=== PATIENT | female | born 1995 | race Caucasian/White ===

== ENCOUNTER 2017-12-15 16:39 | Inpatient (IN) | payer MEDICAID ==
[~2017-12-15] VITALS: Ht 170.2 cm; Wt 75.0 kg
[~2017-12-15 16:39] MED LIST: IBUP-1573 PO; NO HOME MEDS
[2017-12-15] MEDS ORDERED: levoFLOXACIN-Levaquin 500mg/D5 100 ML IV ONE (16:45)
[2017-12-15] MEDS ORDERED: normal saline 1000ML IV soln IVB ONE (16:45)
[2017-12-15] MEDS ORDERED: ondansetron/PF 4mg/2ml inj IV ONE (16:45)
[2017-12-15] MEDS ORDERED: morphine 4 MG/ML inj SYRINge IV ONE (16:45)
[2017-12-15 17:17] LABS: BASOPHILS % (AUTO) 0.2 % (0-1); EOSINOPHILS % (AUTO) 0 % (0-6); HEMATOCRIT 40.7 % (35.0-45.0); LYMPHOCYTES # (AUTO) 2.7 X10'3 (1.1-4.8); LYMPHOCYTES % (AUTO) 16.8 % (21-51); MEAN CORPUSCULAR HEMOGLOBIN 31.3 PG (27.0-31.0); MEAN CORPUSCULAR HGB CONC 34.5 % (33.0-36.5); MEAN CORPUSCULAR VOLUME 90.7 FL (78-98); MEAN PLATELET VOLUME 6.6 FL (7.4-10.4); MONOCYTES # (AUTO) 2.5 X10'3 (0-0.9); MONOCYTES % (AUTO) 15.9 % (2-12); NEUTROPHILS # (AUTO) 10.6 X10'3 (1.8-7.7); NEUTROPHILS % (AUTO) 67.1 % (42-75); PLATELET COUNT 238 X10'3 (140-440); RED BLOOD COUNT 4.48 X10'6 (4.20-5.60); RED CELL DISTRIBUTION WIDTH 13.4 % (11.5-14.5); WHITE BLOOD COUNT 15.8 X10'3 (4.5-11.0)
[2017-12-15 17:31] LABS: ALANINE AMINOTRANSFERASE 112 U/L (12-78); ALBUMIN 3.4 G/DL (3.4-5.0); ALBUMIN/GLOBULIN RATIO 0.7 (1.1-1.5); ALKALINE PHOSPHATASE 184 IU/L (46-116); ANION GAP 14 (8-16); ASPARTATE AMINO TRANSFERASE 60 U/L (10-37); BILIRUBIN,TOTAL 2.1 MG/DL (0.1-1.0); BLOOD UREA NITROGEN 5 MG/DL (7-18); BUN/CREATININE RATIO 5.7 (6.6-38.0); CALCIUM 8.9 MG/DL (8.5-10.1); CHLORIDE 96 MMOL/L (99-107); CREATININE 0.87 MG/DL (0.40-0.90); GLUCOSE 97 MG/DL (70-104); LIPASE 58 U/L (73-393); POTASSIUM 3.3 MMOL/L (3.5-5.1); SODIUM 133 MMOL/L (135-145); TOTAL CARBON DIOXIDE 23.3 MMOL/L (24-32); TOTAL PROTEIN 8.1 G/DL (6.4-8.2); TROPONIN I < 0.04 NG/ML (0.0-0.05); eGFR 81 ML/MIN
[2017-12-15] MEDS ORDERED: normal saline 1000ml 1,000 ML IV ONE (18:00)
[2017-12-15 18:11] LABS: GLUCOSE, URINE Negative (Neg); KETONES,URINE Trace mg/dl (Neg); LEUKOCYTE ESTERASE ,URINE Large (Neg); NITRITES, URINE Positive (Neg); OCCULT BLOOD,URINE Moderate (Neg); PROTEIN,URINE 100 mg/dl (Neg); UROBILINOGEN,URINE >=8.0 E.U/dL (0.2-1.0)
[2017-12-15 18:12] LABS: URINE HCG NEGATIVE (NEG)
[2017-12-15 18:14] LABS: UA COLLECTION TYPE CLN CATCH MIDSTREAM
[2017-12-15 18:14] LABS: TOTAL CELLS COUNTED 100
[2017-12-15 18:15] LABS: CLARITY,URINE CLOUDY (Clear); COLOR,URINE AMBER (Yellow); PH,URINE 6.5 (4.8-8.0)
[2017-12-15 18:15] LABS: PLATELET ESTIMATE NORMAL
[2017-12-15 18:28] LABS: WBC,URINE 50-100 /HPF (0-4)
[2017-12-15 18:29] LABS: BACTERIA,URINE 3+ /HPF (Neg); MUCUS STRANDS NONE SEEN /LPF (Neg); SQUAMOUS EPITHELIAL CELL,UR FEW /LPF (FEW)
[2017-12-15] MEDS ORDERED: potassium Cl 20 mEq SR tablet PO PRN (20:50)
[2017-12-15] MEDS ORDERED: mag hydrox/Alum hydrox/simeth 30ml oral suspension PO PRN (20:50)
[2017-12-15] MEDS ORDERED: magnesium 4gm in 100ml NS 100 ML IV PRN (20:50)
[2017-12-15] MEDS ORDERED: acetaminophen 325mg tablet PO PRN (20:50)
[2017-12-15] MEDS ORDERED: magnesium Cl slow-release 64mg tablet PO PRN (20:50)
[2017-12-15] MEDS ORDERED: potassium Cl 40MEQ/NS 500ml 500 ML IV PRN ×2 (20:50)
[2017-12-15] MEDS ORDERED: magnesium 2GM in 50ml NS 50 ML IV PRN (20:50)
[2017-12-15] MEDS ORDERED: magnesium hydroxide 30ml (MOM) UD suspension PO PRN (20:50)
[2017-12-15] MEDS ORDERED: temazepam 15mg capsule PO PRN (21:00)
[2017-12-15] MEDS: potassium Cl 20mEq in NS 1,000 ML IV SCH (21:00)
[2017-12-15] MEDS: ondansetron/PF 4mg/2ml inj IV PRN (22:38)
[2017-12-15] MEDS: HYDROmorphone inj. 0.5 MG/0.5 ML DISP.SYRIN IV PRN (22:39)
[2017-12-16] MEDS: piperacillin/tazo 4.5gm/100ml 100 ML IV SCH ×4 (00:24→23:34)
[2017-12-16] MEDS: potassium Cl 20mEq in NS 1,000 ML IV SCH ×2 (03:33→10:07)
[2017-12-16] MEDS: ondansetron/PF 4mg/2ml inj IV PRN (04:32)
[2017-12-16] MEDS: HYDROmorphone inj. 0.5 MG/0.5 ML DISP.SYRIN IV PRN ×5 (04:32→23:34)
[2017-12-16] MEDS: heparin, porcine 5000 units/ml vial SQ SCH ×2 (07:41→19:47)
[2017-12-16 07:54] LABS: BASOPHILS % (AUTO) 0.1 % (0-1); EOSINOPHILS # (AUTO) 0.1 X10'3 (0-0.9); EOSINOPHILS % (AUTO) 0.8 % (0-6); HEMATOCRIT 29.8 % (35.0-45.0); HEMOGLOBIN 10.3 g/dl (12.0-16.0); LYMPHOCYTES # (AUTO) 2.2 X10'3 (1.1-4.8); LYMPHOCYTES % (AUTO) 16.9 % (21-51); MEAN CORPUSCULAR HEMOGLOBIN 31.4 PG (27.0-31.0); MEAN CORPUSCULAR HGB CONC 34.6 % (33.0-36.5); MEAN CORPUSCULAR VOLUME 90.7 FL (78-98); MEAN PLATELET VOLUME 6.1 FL (7.4-10.4); MONOCYTES # (AUTO) 2.5 X10'3 (0-0.9); MONOCYTES % (AUTO) 19.8 % (2-12); NEUTROPHILS % (AUTO) 62.4 % (42-75); PLATELET COUNT 194 X10'3 (140-440); RED BLOOD COUNT 3.28 X10'6 (4.20-5.60); RED CELL DISTRIBUTION WIDTH 13.6 % (11.5-14.5); WHITE BLOOD COUNT 12.8 X10'3 (4.5-11.0)
[2017-12-16 08:02] LABS: ALBUMIN 2.3 G/DL (3.4-5.0); ANION GAP 8 (8-16); BLOOD UREA NITROGEN 4 MG/DL (7-18); BUN/CREATININE RATIO 6.3 (6.6-38.0); CHLORIDE 106 MMOL/L (99-107); CREATININE 0.63 MG/DL (0.40-0.90); GLUCOSE 91 MG/DL (70-104); MAGNESIUM 1.8 MG/DL (1.5-2.4); POTASSIUM 4.1 MMOL/L (3.5-5.1); SODIUM 140 MMOL/L (135-145); TOTAL CARBON DIOXIDE 26.5 MMOL/L (24-32); eGFR > 90 ML/MIN
[2017-12-16] MEDS: K and/or MAG REPLACEMENT MC SCH (08:05)
[2017-12-16] MEDS: levoFLOXACIN-Levaquin 500mg/D5 100 ML IV SCH (09:06)
[2017-12-16] MEDS: lactobacillus rhamnosus 10,000 MMU CELLS/CAPSULE PO SCH (16:47)
[2017-12-16] MEDS: nicotine 21mg patch - 24 hr TD SCH (17:29)
[2017-12-16 20:26] VITALS: BP 102/60
[2017-12-16 23:52] VITALS: BP 102/56
[2017-12-17 03:44] LABS: HEMATOCRIT 33.6 % (35.0-45.0); HEMOGLOBIN 11.5 g/dl (12.0-16.0); MEAN CORPUSCULAR HEMOGLOBIN 31.4 PG (27.0-31.0); MEAN CORPUSCULAR HGB CONC 34.2 % (33.0-36.5); MEAN CORPUSCULAR VOLUME 91.7 FL (78-98); MEAN PLATELET VOLUME 7.2 FL (7.4-10.4); PLATELET COUNT 202 X10'3 (140-440); RED BLOOD COUNT 3.66 X10'6 (4.20-5.60); RED CELL DISTRIBUTION WIDTH 13.7 % (11.5-14.5); WHITE BLOOD COUNT 9.6 X10'3 (4.5-11.0)
[2017-12-17 03:55] LABS: ALBUMIN 2.4 G/DL (3.4-5.0); ANION GAP 7 (8-16); BLOOD UREA NITROGEN 8 MG/DL (7-18); BUN/CREATININE RATIO 10.4 (6.6-38.0); CALCIUM 8.4 MG/DL (8.5-10.1); CHLORIDE 103 MMOL/L (99-107); CREATININE 0.77 MG/DL (0.40-0.90); GLUCOSE 78 MG/DL (70-104); MAGNESIUM 1.9 MG/DL (1.5-2.4); POTASSIUM 3.4 MMOL/L (3.5-5.1); SODIUM 140 MMOL/L (135-145); TOTAL CARBON DIOXIDE 29.7 MMOL/L (24-32); eGFR > 90 ML/MIN
[2017-12-17 06:52] LABS: PLATELET ESTIMATE NORMAL; TOTAL CELLS COUNTED 100
[2017-12-17 06:53] LABS: ANISOCYTOSIS 1+; TARGET CELLS FEW
[2017-12-17 07:20] VITALS: BP 91/46
[2017-12-17] MEDS: K and/or MAG REPLACEMENT MC SCH (07:39)
[2017-12-17] MEDS: potassium Cl 20 mEq SR tablet PO PRN ×2 (07:41→14:15)
[2017-12-17] MEDS: lactobacillus rhamnosus 10,000 MMU CELLS/CAPSULE PO SCH ×2 (07:41→17:36)
[2017-12-17] MEDS: levoFLOXACIN-Levaquin 500mg/D5 100 ML IV SCH (07:42)
[2017-12-17] MEDS: heparin, porcine 5000 units/ml vial SQ SCH ×2 (07:42→20:42)
[2017-12-17] MEDS: HYDROmorphone inj. 0.5 MG/0.5 ML DISP.SYRIN IV PRN ×3 (07:42→19:04)
[2017-12-17] MEDS: nicotine 21mg patch - 24 hr TD SCH (07:43)
[2017-12-17] MEDS: piperacillin/tazo 4.5gm/100ml 100 ML IV SCH (08:50)
[2017-12-17 11:17] VITALS: BP 105/58
[2017-12-17 17:06] LABS: ALANINE AMINOTRANSFERASE 211 U/L (12-78); ALBUMIN 2.9 G/DL (3.4-5.0); ALBUMIN/GLOBULIN RATIO 0.6 (1.1-1.5); ALKALINE PHOSPHATASE 279 IU/L (46-116); ANION GAP 7 (8-16); ASPARTATE AMINO TRANSFERASE 206 U/L (10-37); BILIRUBIN,TOTAL 0.5 MG/DL (0.1-1.0); BLOOD UREA NITROGEN 11 MG/DL (7-18); BUN/CREATININE RATIO 16.7 (6.6-38.0); CALCIUM 9.2 MG/DL (8.5-10.1); CHLORIDE 102 MMOL/L (99-107); CREATININE 0.66 MG/DL (0.40-0.90); GLUCOSE 82 MG/DL (70-104); POTASSIUM 3.7 MMOL/L (3.5-5.1); SODIUM 139 MMOL/L (135-145); TOTAL CARBON DIOXIDE 29.7 MMOL/L (24-32); TOTAL PROTEIN 7.8 G/DL (6.4-8.2); eGFR > 90 ML/MIN
[2017-12-17] MEDS ORDERED: sincalide inj 1.5 MCG in normal saline 50ml IV soln 50 ML IV PRN (17:45)
[2017-12-17 18:40] VITALS: BP 118/62
[2017-12-17 23:00] VITALS: BP 99/50
[2017-12-18 05:11] LABS: BASOPHILS % (AUTO) 0.5 % (0-1); EOSINOPHILS # (AUTO) 0.3 X10'3 (0-0.9); EOSINOPHILS % (AUTO) 3.9 % (0-6); HEMATOCRIT 33.4 % (35.0-45.0); HEMOGLOBIN 11.5 g/dl (12.0-16.0); LYMPHOCYTES # (AUTO) 3.1 X10'3 (1.1-4.8); LYMPHOCYTES % (AUTO) 43.1 % (21-51); MEAN CORPUSCULAR HEMOGLOBIN 31.1 PG (27.0-31.0); MEAN CORPUSCULAR HGB CONC 34.6 % (33.0-36.5); MEAN PLATELET VOLUME 6.6 FL (7.4-10.4); MONOCYTES # (AUTO) 1.1 X10'3 (0-0.9); MONOCYTES % (AUTO) 15.4 % (2-12); NEUTROPHILS # (AUTO) 2.7 X10'3 (1.8-7.7); NEUTROPHILS % (AUTO) 37.1 % (42-75); PLATELET COUNT 254 X10'3 (140-440); RED BLOOD COUNT 3.71 X10'6 (4.20-5.60); RED CELL DISTRIBUTION WIDTH 13.8 % (11.5-14.5); WHITE BLOOD COUNT 7.2 X10'3 (4.5-11.0)
[2017-12-18 05:24] LABS: ALBUMIN 2.5 G/DL (3.4-5.0); ANION GAP 9 (8-16); BLOOD UREA NITROGEN 12 MG/DL (7-18); BUN/CREATININE RATIO 20.3 (6.6-38.0); CALCIUM 8.8 MG/DL (8.5-10.1); CHLORIDE 104 MMOL/L (99-107); CREATININE 0.59 MG/DL (0.40-0.90); GLUCOSE 117 MG/DL (70-104); POTASSIUM 3.8 MMOL/L (3.5-5.1); SODIUM 140 MMOL/L (135-145); TOTAL CARBON DIOXIDE 27.2 MMOL/L (24-32); eGFR > 90 ML/MIN
[2017-12-18] MEDS: lactobacillus rhamnosus 10,000 MMU CELLS/CAPSULE PO SCH (07:30)
[2017-12-18] MEDS: heparin, porcine 5000 units/ml vial SQ SCH (08:00)
[2017-12-18] MEDS: nicotine 21mg patch - 24 hr TD SCH (08:00)
[2017-12-18] MEDS: K and/or MAG REPLACEMENT MC SCH (08:00)
[2017-12-18] MEDS: levoFLOXACIN-Levaquin 500mg/D5 100 ML IV SCH (10:46)
[2017-12-18 13:14] VITALS: BP 91/53
[2017-12-18] MEDS: HYDROmorphone inj. 0.5 MG/0.5 ML DISP.SYRIN IV PRN (13:24)
[2017-12-18 15:01] VITALS: BP 114/71
[2017-12-18] MEDS ORDERED: LEVO500T2 PO (15:14)
[2017-12-18] MEDS ORDERED: NICO-731 TOP (15:14)
[2017-12-19 11:12] LABS: HBSAG SCREEN Negative (Negative); HEP A AB, IGM Negative (Negative); HEP B CORE AB, IGM Negative (Negative); HEPATITIS C ANTIBODY <0.1 s/co ratio (0.0-0.9)
== END 2017-12-18 16:30 | disposition home or self-care (01) | DRG 463 ==
LOC: ER 16:40 → ED HOLD 20:47 → SUR 3N 12-16 13:51
PROVIDERS: ADMIT Internal Medicine; ATTEND Internal Medicine
PROC: CF141ZZ Planar Nuclear Medicine Imaging of Gallbladder using Technetium 99m (Tc-99m) (ICD-10-PCS; principal; 2017-12-18)
DX: N10 Acute pyelonephritis (principal); E87.1 Hypo-osmolality and hyponatremia; E87.6 Hypokalemia; F17.210 Nicotine dependence, cigarettes, uncomplicated; N30.00 Acute cystitis without hematuria; D72.829 Elevated white blood cell count, unspecified
CPT/HCPCS: 36415; 74176; 76700; 78227; 80048; 80053; 81001; 81025; 83605; 83690; 83735; 84484; 85025; 86705; 86706; 86709; 86803; 87040; 87070; 87077; 87088; 87186; 87340; 93005; 96365; 96375; 99285; A6258; A9537; J1170; J1644; J1956; J2270; J2405; J2543; J2805; J3480; J7030; J7040

== ENCOUNTER 2018-01-29 17:50 | Emergency (ER) | payer MEDICAID ==
[~2018-01-29] VITALS: Ht 172.7 cm; Wt 66.7 kg
[~2018-01-29 17:50] MED LIST changes: +NICO-731 TOP
[2018-01-29 18:50] LABS: INR 1.1 INR; PROTHROMBIN TIME 11.4 SECONDS (9.0-12.0)
[2018-01-29 18:56] LABS: BASOPHILS % (AUTO) 0.3 % (0-1); EOSINOPHILS # (AUTO) 0.2 X10'3 (0-0.9); HEMATOCRIT 38.4 % (35.0-45.0); HEMOGLOBIN 13.4 g/dl (12.0-16.0); LYMPHOCYTES # (AUTO) 2.3 X10'3 (1.1-4.8); LYMPHOCYTES % (AUTO) 13.9 % (21-51); MEAN CORPUSCULAR HEMOGLOBIN 31.3 PG (27.0-31.0); MEAN CORPUSCULAR HGB CONC 34.9 % (33.0-36.5); MEAN CORPUSCULAR VOLUME 89.6 FL (78-98); MEAN PLATELET VOLUME 6.1 FL (7.4-10.4); MONOCYTES # (AUTO) 1.6 X10'3 (0-0.9); MONOCYTES % (AUTO) 9.7 % (2-12); NEUTROPHILS # (AUTO) 12.4 X10'3 (1.8-7.7); NEUTROPHILS % (AUTO) 75.1 % (42-75); PLATELET COUNT 419 X10'3 (140-440); RED BLOOD COUNT 4.29 X10'6 (4.20-5.60); RED CELL DISTRIBUTION WIDTH 14.4 % (11.5-14.5); WHITE BLOOD COUNT 16.5 X10'3 (4.5-11.0)
[2018-01-29 19:02] LABS: CLARITY,URINE CLOUDY (Clear); COLOR,URINE YELLOW (Yellow); GLUCOSE, URINE NEGATIVE (Neg); KETONES,URINE NEGATIVE (Neg); LEUKOCYTE ESTERASE ,URINE LARGE (Neg); NITRITES, URINE POSITIVE (Neg); OCCULT BLOOD,URINE SMALL (Neg); PH,URINE 6.5 (4.8-8.0); PROTEIN,URINE 30 mg/dl (Neg); UROBILINOGEN,URINE 0.2 E.U/dL (0.2-1.0)
[2018-01-29 19:04] LABS: ALANINE AMINOTRANSFERASE 29 U/L (12-78); ALBUMIN 3.6 G/DL (3.4-5.0); ALBUMIN/GLOBULIN RATIO 0.8 (1.1-1.5); ALKALINE PHOSPHATASE 120 IU/L (46-116); ANION GAP 13 (8-16); ASPARTATE AMINO TRANSFERASE 11 U/L (10-37); BILIRUBIN,TOTAL 0.4 MG/DL (0.1-1.0); BLOOD UREA NITROGEN 10 MG/DL (7-18); BUN/CREATININE RATIO 14.9 (6.6-38.0); CALCIUM 9.2 MG/DL (8.5-10.1); CHLORIDE 98 MMOL/L (99-107); CREATININE 0.67 MG/DL (0.40-0.90); GLUCOSE 98 MG/DL (70-104); POTASSIUM 4.1 MMOL/L (3.5-5.1); SODIUM 135 MMOL/L (135-145); TOTAL PROTEIN 8.2 G/DL (6.4-8.2); eGFR > 90 ML/MIN
[2018-01-29 19:07] LABS: WBC,URINE TNTC /HPF (0-4)
[2018-01-29 19:08] LABS: BACTERIA,URINE 4+ /HPF (Neg); SQUAMOUS EPITHELIAL CELL,UR FEW /LPF (FEW)
[2018-01-29 19:14] LABS: UA COLLECTION TYPE CLN CATCH MIDSTREAM
[2018-01-29] MEDS ORDERED: BACDS PO (21:33)
[2018-01-29 21:59] LABS: URINE HCG NEGATIVE (NEG)
[2018-01-29 22:01] VITALS: BP 124/55
== END 2018-01-29 21:55 | disposition home or self-care (01) ==
LOC: ER 17:51
DX: N12 Tubulo-interstitial nephritis, not specified as acute or chronic (principal); F17.200 Nicotine dependence, unspecified, uncomplicated; F12.10 Cannabis abuse, uncomplicated; Z79.899 Other long term (current) drug therapy
CPT/HCPCS: 36415; 80053; 81001; 81025; 85025; 85610; 87077; 87088; 87186; 99284

== ENCOUNTER 2018-03-20 11:12 | Emergency (ER) | payer MEDICAID ==
[~2018-03-20] VITALS: Ht 172.7 cm; Wt 69.0 kg
[2018-03-20 11:55] LABS: URINE HCG NEGATIVE (NEG)
[2018-03-20 12:02] LABS: CLARITY,URINE CLOUDY (Clear); COLOR,URINE YELLOW (Yellow); GLUCOSE, URINE NEGATIVE (Neg); KETONES,URINE NEGATIVE (Neg); LEUKOCYTE ESTERASE ,URINE NEGATIVE (Neg); NITRITES, URINE NEGATIVE (Neg); OCCULT BLOOD,URINE NEGATIVE (Neg); PH,URINE 7.5 (4.8-8.0); PROTEIN,URINE NEGATIVE (Neg); UROBILINOGEN,URINE 0.2 E.U/dL (0.2-1.0)
[2018-03-20 12:06] LABS: UA COLLECTION TYPE CLN CATCH MIDSTREAM
[2018-03-20 12:13] LABS: BACTERIA,URINE NONE SEEN /HPF (Neg); MUCUS STRANDS FEW /LPF (Neg); RBC,URINE 0-2 /HPF (0-2); SQUAMOUS EPITHELIAL CELL,UR MODERATE /LPF (FEW); WBC,URINE 0-4 /HPF (0-4)
[2018-03-20 12:14] LABS: AMORPHOUS PHOSPHATES 3+
[2018-03-20] MEDS ORDERED: IBUP-1984 PO (12:28)
[2018-03-20] MEDS ORDERED: ketorolac trometh. 30mg/ml inj. IM ONE (12:30)
[2018-03-20] MEDS ORDERED: ketorolac trometh inj. 60 MG/2 ML VIAL IM ONE (12:30)
[2018-03-20 12:57] VITALS: BP 14/68
== END 2018-03-20 12:59 | disposition home or self-care (01) ==
LOC: ER 11:13
DX: R10.31 Right lower quadrant pain (principal); R35.0 Frequency of micturition; Z79.899 Other long term (current) drug therapy; Z98.890 Other specified postprocedural states; Z90.89 Acquired absence of other organs
CPT/HCPCS: 81001; 81025; 96372; 99283; J1885

== ENCOUNTER 2018-12-03 20:18 | Emergency (ER) | payer MEDICAID ==
[~2018-12-03] VITALS: Ht 172.7 cm; Wt 65.0 kg
[2018-12-03 20:56] LABS: BASOPHILS % (AUTO) 0.1 % (0-1); EOSINOPHILS % (AUTO) 0.1 % (0-6); HEMATOCRIT 43.2 % (35.0-45.0); HEMOGLOBIN 14.7 g/dl (12.0-16.0); LYMPHOCYTES # (AUTO) 1.5 X10'3 (1.1-4.8); LYMPHOCYTES % (AUTO) 11.1 % (21-51); MEAN CORPUSCULAR VOLUME 91.1 FL (78-98); MEAN PLATELET VOLUME 6.4 FL (7.4-10.4); MONOCYTES # (AUTO) 1.1 X10'3 (0-0.9); MONOCYTES % (AUTO) 8.3 % (2-12); NEUTROPHILS # (AUTO) 11.1 X10'3 (1.8-7.7); NEUTROPHILS % (AUTO) 80.4 % (42-75); PLATELET COUNT 221 X10'3 (140-440); RED BLOOD COUNT 4.74 X10'6 (4.20-5.60); RED CELL DISTRIBUTION WIDTH 14.1 % (11.5-14.5); WHITE BLOOD COUNT 13.8 X10'3 (4.5-11.0)
[2018-12-03 21:02] LABS: CLARITY,URINE CLOUDY (Clear); COLOR,URINE YELLOW (Yellow); GLUCOSE, URINE NEGATIVE (Neg); KETONES,URINE NEGATIVE (Neg); LEUKOCYTE ESTERASE ,URINE LARGE (Neg); NITRITES, URINE POSITIVE (Neg); OCCULT BLOOD,URINE TRACE-INTACT (Neg); PROTEIN,URINE 30 mg/dl (Neg)
[2018-12-03 21:04] LABS: URINE HCG NEGATIVE (NEG)
[2018-12-03 21:08] LABS: UA COLLECTION TYPE CLN CATCH MIDSTREAM
[2018-12-03 21:10] LABS: BACTERIA,URINE 4+ /HPF (Neg); MUCUS STRANDS NONE SEEN /LPF (Neg); RBC,URINE 0-2 /HPF (0-2); SQUAMOUS EPITHELIAL CELL,UR NONE SEEN /LPF (FEW); WBC,URINE TNTC /HPF (0-4)
[2018-12-03 21:10] LABS: ALANINE AMINOTRANSFERASE 51 U/L (12-78); ALBUMIN 3.8 G/DL (3.4-5.0); ALBUMIN/GLOBULIN RATIO 0.9 (1.1-1.5); ALKALINE PHOSPHATASE 102 IU/L (46-116); ANION GAP 12 (8-16); ASPARTATE AMINO TRANSFERASE 55 U/L (10-37); BILIRUBIN,TOTAL 0.5 MG/DL (0.1-1.0); BLOOD UREA NITROGEN 8 MG/DL (7-18); BUN/CREATININE RATIO 9.9 (6.6-38.0); CALCIUM 8.9 MG/DL (8.5-10.1); CHLORIDE 97 MMOL/L (99-107); CREATININE 0.81 MG/DL (0.40-0.90); GLUCOSE 106 MG/DL (70-104); SODIUM 134 MMOL/L (135-145); TOTAL PROTEIN 7.9 G/DL (6.4-8.2); eGFR 88 ML/MIN
[2018-12-03 21:20] LABS: INR 1.1 INR; PROTHROMBIN TIME 11.3 SECONDS (9.0-12.0)
[2018-12-03] MEDS ORDERED: CefTRIAXone/D5W-Rocephin 1gm 50 ML IV ONE (22:05)
[2018-12-03] MEDS ORDERED: normal saline 1000ML IV soln IVB ONE (22:10)
[2018-12-03] MEDS ORDERED: CIPR-230 PO (22:19)
[2018-12-03] MEDS ORDERED: ketorolac trometh. 30mg/ml inj. IV ONE (22:35)
[2018-12-03 23:37] VITALS: BP 102/59
== END 2018-12-03 23:38 | disposition home or self-care (01) ==
LOC: ER 20:18
DX: N10 Acute pyelonephritis (principal); Z98.890 Other specified postprocedural states; Z79.2 Long term (current) use of antibiotics; Z79.899 Other long term (current) drug therapy
CPT/HCPCS: 36415; 80053; 81001; 81025; 85025; 85610; 87077; 87088; 87186; 96365; 96375; 99283; J0696; J1885; J7030

== ENCOUNTER 2019-03-14 12:03 | Emergency (ER) | payer MEDICAID ==
[~2019-03-14] VITALS: Ht 170.2 cm; Wt 67.7 kg
[2019-03-14] MEDS ORDERED: BUPIVAcaine/PF 2.5 mg/ml (0.25%) 30ml vial IJ ONE (13:30)
[2019-03-14] MEDS ORDERED: BUPIVAcaine/PF 2.5mg/ml (0.25%) 10ml vial IJ ONE (13:45)
[2019-03-14] MEDS ORDERED: AMOX-580 PO (13:45)
[2019-03-14 14:11] VITALS: BP 123/83
== END 2019-03-14 14:12 | disposition home or self-care (01) ==
LOC: ER 12:04
DX: K02.9 Dental caries, unspecified (principal); Z98.890 Other specified postprocedural states; Z79.899 Other long term (current) drug therapy
CPT/HCPCS: 64400; 99284; J3490

== ENCOUNTER 2019-05-19 10:32 | Emergency (ER) | payer MEDICAID ==
[~2019-05-19] VITALS: Ht 172.7 cm; Wt 59.0 kg
[2019-05-19 10:35] VITALS: BP 115/70
[2019-05-19 11:07] LABS: BASOPHILS # (AUTO) 0.1 X10'3 (0-0.2); BASOPHILS % (AUTO) 0.8 % (0-1); EOSINOPHILS # (AUTO) 0.1 X10'3 (0-0.9); EOSINOPHILS % (AUTO) 1.3 % (0-6); HEMATOCRIT 41.4 % (35.0-45.0); HEMOGLOBIN 13.9 g/dl (12.0-16.0); LYMPHOCYTES # (AUTO) 2.7 X10'3 (1.1-4.8); LYMPHOCYTES % (AUTO) 38.7 % (21-51); MEAN CORPUSCULAR HEMOGLOBIN 30.9 PG (27.0-31.0); MEAN CORPUSCULAR HGB CONC 33.6 g/dL (33.0-36.5); MEAN PLATELET VOLUME 6.7 FL (7.4-10.4); MONOCYTES # (AUTO) 0.6 X10'3 (0-0.9); MONOCYTES % (AUTO) 8.1 % (2-12); NEUTROPHILS # (AUTO) 3.6 X10'3 (1.8-7.7); NEUTROPHILS % (AUTO) 51.1 % (42-75); PLATELET COUNT 300 X10'3 (140-440); RED CELL DISTRIBUTION WIDTH 13.2 % (11.5-14.5); WHITE BLOOD COUNT 7.1 X10'3 (4.5-11.0)
[2019-05-19 11:11] LABS: CLARITY,URINE CLOUDY (Clear); COLOR,URINE STRAW (Yellow); GLUCOSE, URINE NEGATIVE (Neg); KETONES,URINE NEGATIVE (Neg); LEUKOCYTE ESTERASE ,URINE MODERATE (Neg); NITRITES, URINE NEGATIVE (Neg); OCCULT BLOOD,URINE NEGATIVE (Neg); PH,URINE 5.5 (4.8-8.0); PROTEIN,URINE NEGATIVE (Neg); UROBILINOGEN,URINE 0.2 E.U/dL (0.2-1.0)
[2019-05-19 11:12] LABS: UA COLLECTION TYPE CLN CATCH MIDSTREAM
[2019-05-19 11:16] LABS: BACTERIA,URINE 2+ /HPF (Neg); MUCUS STRANDS NONE SEEN /LPF (Neg); RBC,URINE NONE SEEN /HPF (0-2); SQUAMOUS EPITHELIAL CELL,UR MODERATE /LPF (FEW); WBC CLUMPS,URINE MODERATE /HPF (NEGATIVE); WBC,URINE TNTC /HPF (0-4)
[2019-05-19 11:21] LABS: ALANINE AMINOTRANSFERASE 23 U/L (12-78); ALBUMIN 3.7 G/DL (3.4-5.0); ALKALINE PHOSPHATASE 86 IU/L (46-116); ANION GAP 6 (8-16); ASPARTATE AMINO TRANSFERASE 11 U/L (10-37); BILIRUBIN,TOTAL 0.1 MG/DL (0.1-1.0); BLOOD UREA NITROGEN 13 MG/DL (7-18); BUN/CREATININE RATIO 21.3 (6.6-38.0); CALCIUM 9.1 MG/DL (8.5-10.1); CHLORIDE 104 MMOL/L (99-107); CREATININE 0.61 MG/DL (0.40-0.90); GLUCOSE 68 MG/DL (70-104); POTASSIUM 4.3 MMOL/L (3.5-5.1); SODIUM 138 MMOL/L (135-145); TOTAL CARBON DIOXIDE 28.5 MMOL/L (24-32); TOTAL PROTEIN 7.5 G/DL (6.4-8.2); eGFR > 90 ML/MIN
[2019-05-19 11:27] LABS: BETA HCG,QUANTITATIVE < 1.0 mIU/ml
[2019-05-19] MEDS ORDERED: CEPH500C5 PO (13:04)
== END 2019-05-19 13:14 | disposition home or self-care (01) ==
LOC: ER 10:33
DX: O03.9 Complete or unspecified spontaneous abortion without complication (principal); N83.299 Other ovarian cyst, unspecified side; Z98.890 Other specified postprocedural states; Z79.2 Long term (current) use of antibiotics; Z79.899 Other long term (current) drug therapy; Z3A.08 8 weeks gestation of pregnancy
CPT/HCPCS: 36415; 76830; 76856; 80053; 81001; 84702; 85025; 86900; 86901; 87077; 87088; 87186; 99284

== ENCOUNTER 2019-09-19 09:52 | Emergency (ER) | payer MEDICAID ==
[~2019-09-19] VITALS: Ht 172.7 cm; Wt 66.7 kg
[2019-09-19 10:02] VITALS: BP 113/66
== END 2019-09-19 11:59 | disposition home or self-care (01) ==
LOC: ER 09:53
DX: Z32.01 Encounter for pregnancy test, result positive (principal); Z98.890 Other specified postprocedural states; Z90.89 Acquired absence of other organs; Z79.899 Other long term (current) drug therapy
CPT/HCPCS: 36415; 84702; 99283

== ENCOUNTER 2020-12-27 19:32 | Emergency (ER) | payer MEDICAID ==
[~2020-12-27] VITALS: Ht 172.7 cm; Wt 79.5 kg
[2020-12-27] MEDS ORDERED: CEPH-585 PO (19:49)
[2020-12-27] MEDS ORDERED: SULF1TAB49 PO (19:49)
[2020-12-27] MEDS ORDERED: ONDA4TAB6 PO (19:49)
[2020-12-27] MEDS ORDERED: HYDR-3964 PO (19:49)
[2020-12-27] MEDS ORDERED: LIDOcaine 1% W/epiNEPHrine 1:200,000 10ml vial IJ ONE (19:50)
[2020-12-27] MEDS ORDERED: CefTRIAXone 2gm/D5W 50ml BAG 50 ML IV ONE (19:50)
[2020-12-27] MEDS ORDERED: TETanus/Pertussis (Acell)/Diphther VAC/PF (Tdap-Adult) 0.5ml syringe IMVAC ONE (19:50)
[2020-12-27] MEDS ORDERED: vancomycin/NS 1 GM ADD-VANTAGE 250 ML IV ONE (19:50)
[2020-12-27] MEDS ORDERED: iohexol 300mg/ml 100ml inj. ONE (20:04)
[2020-12-27 21:19] LABS: BASOPHILS % (AUTO) 0.5 % (0-1); EOSINOPHILS # (AUTO) 0.1 X10'3 (0-0.9); EOSINOPHILS % (AUTO) 1.1 % (0-6); HEMATOCRIT 34.5 % (35.0-45.0); HEMOGLOBIN 11.8 g/dl (12.0-16.0); LYMPHOCYTES # (AUTO) 2.6 X10'3 (1.1-4.8); LYMPHOCYTES % (AUTO) 31.1 % (21-51); MEAN CORPUSCULAR HEMOGLOBIN 30.5 PG (27.0-31.0); MEAN CORPUSCULAR HGB CONC 34.4 g/dL (33.0-36.5); MEAN CORPUSCULAR VOLUME 88.8 FL (78-98); MEAN PLATELET VOLUME 6.6 FL (7.4-10.4); MONOCYTES # (AUTO) 0.9 X10'3 (0-0.9); MONOCYTES % (AUTO) 10.5 % (2-12); NEUTROPHILS # (AUTO) 4.8 X10'3 (1.8-7.7); NEUTROPHILS % (AUTO) 56.8 % (42-75); PLATELET COUNT 250 X10'3 (140-440); RED BLOOD COUNT 3.88 X10'6 (4.20-5.60); RED CELL DISTRIBUTION WIDTH 14.1 % (11.5-14.5); WHITE BLOOD COUNT 8.4 X10'3 (4.5-11.0)
[2020-12-27 21:23] LABS: ALANINE AMINOTRANSFERASE 41 U/L (12-78); ALBUMIN 3.5 G/DL (3.4-5.0); ALKALINE PHOSPHATASE 144 IU/L (46-116); ANION GAP 5 (8-16); ASPARTATE AMINO TRANSFERASE 28 U/L (10-37); BILIRUBIN,TOTAL 0.2 MG/DL (0.1-1.0); BLOOD UREA NITROGEN 9 MG/DL (7-18); CALCIUM 8.9 MG/DL (8.5-10.1); CHLORIDE 103 MMOL/L (99-107); GLUCOSE 94 MG/DL (70-104); POTASSIUM 3.5 MMOL/L (3.5-5.1); SODIUM 137 MMOL/L (135-145); TOTAL CARBON DIOXIDE 28.7 MMOL/L (24-32); TOTAL PROTEIN 6.9 G/DL (6.4-8.2); eGFR > 90 ML/MIN
[2020-12-27 23:38] VITALS: BP 103/48
== END 2020-12-27 23:39 | disposition home or self-care (01) ==
LOC: ER 19:32
DX: H66.41 Suppurative otitis media, unspecified, right ear (principal); H60.11 Cellulitis of right external ear; K11.20 Sialoadenitis, unspecified; Z20.3 Contact with and (suspected) exposure to rabies; Z90.89 Acquired absence of other organs; Z98.890 Other specified postprocedural states; Z79.2 Long term (current) use of antibiotics; Z79.899 Other long term (current) drug therapy
CPT/HCPCS: 36415; 69005; 70482; 80053; 83605; 84145; 85025; 87040; 87070; 90471; 90715; 96365; 96368; 99285; J0696; J3370; Q9967

== ENCOUNTER 2022-10-04 03:48 | Emergency (ER) | payer MEDICAID ==
[~2022-10-04] VITALS: Ht 172.7 cm; Wt 82.7 kg
[~2022-10-04 03:48] MED LIST changes: +ONDA4TAB6 PO; +SULF1TAB49 PO
[2022-10-04 04:01] VITALS: BP 109/56
== END 2022-10-04 10:11 | disposition left against medical advice (07) ==
LOC: ER 03:49
DX: J00 Acute nasopharyngitis [common cold] (principal); R05.9 Cough, unspecified; R09.89 Other specified symptoms and signs involving the circulatory and respiratory systems; Z53.21 Procedure and treatment not carried out due to patient leaving prior to being seen by health care provider

== ENCOUNTER 2024-08-26 17:02 | Emergency (ER) | payer MEDICAID ==
[~2024-08-26] VITALS: Ht 172.7 cm; Wt 75.0 kg
[2024-08-26 17:18] VITALS: BP 124/79; PULSE 88; RESP 18; TEMP 102.9; O2SAT 100
[2024-08-26] MEDS ORDERED: ibuprofen tablet 400 MG TABLET PO ONE (17:20)
[2024-08-26] MEDS: ibuprofen 200mg tablet PO ONE (17:24)
== END 2024-08-26 18:04 | disposition left against medical advice (07) ==
LOC: ER 17:03
DX: R50.9 Fever, unspecified (principal); R09.81 Nasal congestion; R09.89 Other specified symptoms and signs involving the circulatory and respiratory systems; Z53.1 Procedure and treatment not carried out because of patient's decision for reasons of belief and group pressure